=== PATIENT | female | born 1990 | race Caucasian/White ===

== ENCOUNTER → 2020-02-08 | Outpatient (CLI) | payer BC, OTHER | END | disposition home or self-care (01) | LOC: LABMAIN 18:59 | PROVIDERS: ATTEND Physician Assistant Medical | DX: R05 Cough (principal); J02.9 Acute pharyngitis, unspecified ==

== ENCOUNTER → 2020-07-16 | Outpatient (CLI) | payer BC ==
--- NOTE | 2020-07-16 10:53 | XR ---
EXAMINATION TYPE: XR chest 2V DATE OF EXAM: 07/16/2020 COMPARISON: NONE TECHNIQUE: PA and lateral views submitted. HISTORY: Pain FINDINGS: The lungs are clear and there is no pneumothorax, pleural effusion, or focal pneumonia. Calcified g ranuloma left upper lobe. Heart size normal. No overt failure. IMPRESSION: 1. No acute process.
--- NOTE | 2020-07-16 10:55 | XR ---
EXAMINATION TYPE: XR thoracic spine complete DATE OF EXAM: 07/16/2020 COMPARISON: NONE HISTORY: Pain TECHNIQUE: 3 views submitted FINDINGS: Alignment is anatomic. There is no compression deformities. Hypertrophic spurring involving the mid and lower thoracic spine. Disc space appears to be fairly well preserved. Slight curvature noted. IMPRESSION: 1. Mild hypertrophic spurring.
== END | disposition home or self-care (01) ==
LOC: RADXRMAIN 10:03
PROVIDERS: ATTEND Internal Medicine Medical Oncology
DX: C50.212 Malignant neoplasm of upper-inner quadrant of left female breast (principal); M46.04 Spinal enthesopathy, thoracic region
CPT/HCPCS: 71046; 72072